=== PATIENT | female | born 1955 | race Caucasian/White ===

== ENCOUNTER 2023-01-09 23:23 | Inpatient (IN) | payer MEDICARE ==
[2023-01-09 23:54] LABS: #Monocytes 1.1 thou/uL (0.11-0.59); #Neutrophils 10.8 thou/uL (1.40-6.50); %Basophils 0.3 % (0.0-1.0); %Eosinophils 0.3 % (0.0-10.0); %Lymphocytes 7.4 % (21.0-51.0); %Monocytes 8.2 % (0.0-10.0); %Neutrophils 83.3 % (42.0-75.0); Mean Corpuscular HGB CONC 30.4 g/dL (32.0-36.0); Mean Corpuscular Hemoglobin 23.8 pg (27.0-31.0); Mean Corpuscular Volume 78.2 fl (78.0-98.0); Mean Platelet Volume 8.9 fL (7.4-10.4); Platelet Count 434 10x3/uL (130-400); RBC Distribution Width 16.1 % (11.5-14.5); Red Blood Cell (RBC) Count 2.94 mill/uL (4.20-5.40)
[2023-01-10 00:16] LABS: ALT (SGPT) 11 U/L (8-55); AST (SGOT) 15 U/L (5-34); Albumin 3.4 g/dL (3.4-4.8); Alkaline Phosphatase 155 U/L (40-110); Anion Gap 15 mmol/L (10-20); BUN (Urea Nitrogen) 32 mg/dL (9.8-20.1); Bilirubin, Total 0.3 mg/dL (0.2-1.2); Calc. Creatinine Clearance 0 mL/min (70-130); Calcium 8.8 mg/dL (7.8-10.44); Carbon Dioxide 14 mmol/L (23-31); Chloride 111 mmol/L (98-107); Estimated GFR 48; Globulin 2.8 g/dL (2.4-3.5); Glucose 123 mg/dL (80-115); Potassium 4.6 mmol/L (3.5-5.1); Protein, Total 6.2 g/dL (5.8-8.1); Sodium 135 mmol/L (136-145)
[2023-01-10] MEDS ORDERED: Furosemide 40 MG/4 ML VIAL ONE (01:15)
[2023-01-10] MEDS ORDERED: Vancomycin 1 GM/200 ML (FROZEN) BAG ONE (01:57)
[2023-01-10] MEDS ORDERED: Cefepime 2 GM VIAL ONE (01:57)
[2023-01-10] MEDS ORDERED: Senokot S 8.6-50 MG TAB PO PRN (02:17)
[2023-01-10] MEDS ORDERED: Acetaminophen 325 MG TAB PO PRN (02:17)
[2023-01-10] MEDS ORDERED: Ondansetron ODT 4 MG TAB PO PRN (02:17)
[2023-01-10] MEDS ORDERED: HYDROcodone/Acetaminophen 5/325 mg Tablet ONE (02:18)
[2023-01-10] MEDS ORDERED: Electrolyte Replacement Protocol 1 EACH FS SCH (02:22)
[2023-01-10 03:08] LABS: Lactic Acid 1.5 mmol/L (0.5-2.2)
[2023-01-10] MEDS ORDERED: Clindamycin/D5W 600 MG in Premix Bag 1 BAG IVPB SCH (03:15)
[2023-01-10 03:16] LABS: Troponin I Less than 0.010 ng/mL (< 0.028)
[2023-01-10 04:37] VITALS: BMI 37.0
[2023-01-10] MEDS ORDERED: EPOETIN ALFA-EPBX (ESRD) 10,000 UNITS/ML VIAL SC SCH ×3 (06:00→09:00)
[2023-01-10 06:45] LABS: Troponin I Less than 0.010 ng/mL (< 0.028)
[2023-01-10] MEDS: HYDROcodone/Acetaminophen 5/325 mg Tablet PO PRN ×2 (07:27→20:22)
[2023-01-10] MEDS: Ipratropium/Albuterol 3 ML NEB NEB SCH ×4 (07:41→23:34)
[2023-01-10] MEDS ORDERED: Azithromycin 250 MG TAB PO SCH (08:00)
[2023-01-10] MEDS ORDERED: LACTINEX 1 TAB PO SCH (09:00)
[2023-01-10] MEDS ORDERED: CHOLECALCIFEROL 1250 MCG PO SCH (09:00)
[2023-01-10] MEDS: cefTRIAXone\\ROCEPHIN 2 GM in Sodium Chloride 0.9% 100 ML IVPB SCH (09:27)
[2023-01-10] MEDS: Famotidine 20 MG TAB PO SCH (09:28)
[2023-01-10] MEDS: Carvedilol 25 MG TAB PO SCH ×2 (09:28→17:25)
[2023-01-10] MEDS: Polyethylene Glycol 3350 17 GM Packet PO SCH (09:28)
[2023-01-10] MEDS: Venlafaxine HCl XR 150 MG CAP PO SCH (09:28)
[2023-01-10] MEDS: Amlodipine 10 MG TAB PO SCH (09:28)
[2023-01-10] MEDS: Fenofibrate Nanocrystallized 145 MG TAB PO SCH (09:28)
[2023-01-10] MEDS ORDERED: Fluconazole 100 MG TAB PO SCH (09:45)
[2023-01-10] MEDS ORDERED: Iopamidol 370 76% 100 ML VIAL ONE (10:05)
[2023-01-10] MEDS: Nicotine 14 MG PATCH TD SCH (11:30)
[2023-01-10] MEDS: Floranex 1 GM Packet PO SCH (11:31)
[2023-01-10] MEDS ORDERED: tiZANidine HCl 4 MG TAB PO SCH (11:45)
[2023-01-10] MEDS ORDERED: Furosemide 40 MG TAB PO SCH (14:00)
[2023-01-11 04:38] LABS: #Eosinphils 0.2 thou/uL (0.0-0.7); #Monocytes 0.8 thou/uL (0.11-0.59); #Neutrophils 3.6 thou/uL (1.40-6.50); %Basophils 0.5 % (0.0-1.0); %Eosinophils 2.5 % (0.0-10.0); %Lymphocytes 23.3 % (21.0-51.0); %Monocytes 12.9 % (0.0-10.0); %Neutrophils 60.3 % (42.0-75.0); Hemoglobin 6.9 g/dL (12.0-16.0); Mean Corpuscular Hemoglobin 24.2 pg (27.0-31.0); Mean Corpuscular Volume 80.7 fl (78.0-98.0); Mean Platelet Volume 9.2 fL (7.4-10.4); Platelet Count 395 10x3/uL (130-400); RBC Distribution Width 16.5 % (11.5-14.5); Red Blood Cell (RBC) Count 2.85 mill/uL (4.20-5.40); White Blood Cell (WBC) Count 5.9 10x3/uL (4.8-10.8)
[2023-01-11 04:53] LABS: Anion Gap 13 mmol/L (10-20); BUN (Urea Nitrogen) 34 mg/dL (9.8-20.1); Calc. Creatinine Clearance 53 mL/min (70-130); Carbon Dioxide 19 mmol/L (23-31); Chloride 109 mmol/L (98-107); Estimated GFR 43; Glucose 83 mg/dL (80-115); Sodium 137 mmol/L (136-145)
[2023-01-11] MEDS: Ipratropium/Albuterol 3 ML NEB NEB SCH ×3 (08:32→18:39)
[2023-01-11] MEDS: Polyethylene Glycol 3350 17 GM Packet PO SCH (09:02)
[2023-01-11] MEDS: Nicotine 14 MG PATCH TD SCH (09:03)
[2023-01-11] MEDS: Floranex 1 GM Packet PO SCH (09:03)
[2023-01-11] MEDS: cefTRIAXone\\ROCEPHIN 2 GM in Sodium Chloride 0.9% 100 ML IVPB SCH (09:03)
[2023-01-11] MEDS: Fluconazole 100 MG TAB PO SCH (09:04)
[2023-01-11] MEDS: Venlafaxine HCl XR 150 MG CAP PO SCH (09:04)
[2023-01-11] MEDS: Carvedilol 25 MG TAB PO SCH ×2 (09:04→17:03)
[2023-01-11] MEDS: Famotidine 20 MG TAB PO SCH (09:04)
[2023-01-11] MEDS: tiZANidine HCl 4 MG TAB PO SCH (09:04)
[2023-01-11] MEDS: Azithromycin 250 MG TAB PO SCH (09:04)
[2023-01-11] MEDS: HYDROcodone/Acetaminophen 5/325 mg Tablet PO PRN ×3 (09:05→21:22)
[2023-01-11] MEDS: Amlodipine 10 MG TAB PO SCH (09:05)
[2023-01-11] MEDS: Fenofibrate Nanocrystallized 145 MG TAB PO SCH (09:05)
[2023-01-12] MEDS: Ipratropium/Albuterol 3 ML NEB NEB SCH ×3 (01:03→12:12)
[2023-01-12] MEDS: HYDROcodone/Acetaminophen 5/325 mg Tablet PO PRN ×2 (02:56→11:11)
[2023-01-12 04:34] LABS: #Basophils 0.1 thou/uL (0.0-0.2); #Eosinphils 0.3 thou/uL (0.0-0.7); #Monocytes 0.7 thou/uL (0.11-0.59); #Neutrophils 5.1 thou/uL (1.40-6.50); %Basophils 0.8 % (0.0-1.0); %Eosinophils 3.3 % (0.0-10.0); %Lymphocytes 18.6 % (21.0-51.0); %Monocytes 9.8 % (0.0-10.0); %Neutrophils 66.8 % (42.0-75.0); Hemoglobin 7.9 g/dL (12.0-16.0); Mean Corpuscular HGB CONC 30.4 g/dL (32.0-36.0); Mean Corpuscular Hemoglobin 24.8 pg (27.0-31.0); Mean Corpuscular Volume 81.8 fl (78.0-98.0); Mean Platelet Volume 9.1 fL (7.4-10.4); Platelet Count 415 10x3/uL (130-400); RBC Distribution Width 16.7 % (11.5-14.5); Red Blood Cell (RBC) Count 3.18 mill/uL (4.20-5.40); White Blood Cell (WBC) Count 7.6 10x3/uL (4.8-10.8)
[2023-01-12 05:03] LABS: Anion Gap 11 mmol/L (10-20); BUN (Urea Nitrogen) 27 mg/dL (9.8-20.1); Calc. Creatinine Clearance 63 mL/min (70-130); Calcium 9.1 mg/dL (7.8-10.44); Carbon Dioxide 22 mmol/L (23-31); Chloride 108 mmol/L (98-107); Estimated GFR 53; Glucose 80 mg/dL (80-115); Potassium 4.9 mmol/L (3.5-5.1); Sodium 136 mmol/L (136-145)
[2023-01-12] MEDS: Carvedilol 25 MG TAB PO SCH (10:26)
[2023-01-12] MEDS: Fluconazole 100 MG TAB PO SCH (10:26)
[2023-01-12] MEDS: Fenofibrate Nanocrystallized 145 MG TAB PO SCH (10:26)
[2023-01-12] MEDS: Amlodipine 10 MG TAB PO SCH (10:27)
[2023-01-12] MEDS: Polyethylene Glycol 3350 17 GM Packet PO SCH (10:27)
[2023-01-12] MEDS: tiZANidine HCl 4 MG TAB PO SCH (10:27)
[2023-01-12] MEDS: Famotidine 20 MG TAB PO SCH (10:27)
[2023-01-12] MEDS: Floranex 1 GM Packet PO SCH (10:27)
[2023-01-12] MEDS: Azithromycin 250 MG TAB PO SCH (10:27)
[2023-01-12] MEDS: Venlafaxine HCl XR 150 MG CAP PO SCH (10:27)
[2023-01-12] MEDS: cefTRIAXone\\ROCEPHIN 2 GM in Sodium Chloride 0.9% 100 ML IVPB SCH (10:28)
[2023-01-12] MEDS: Nicotine 14 MG PATCH TD SCH (11:12)
[2023-01-12 12:12] VITALS: TEMP 97.9
[2023-01-12 12:39] VITALS: BP 102/51
== END 2023-01-12 16:31 | disposition home or self-care (01) | DRG 193 ==
LOC: ERS 23:23 → 2NO 01-10 02:21
PROVIDERS: ADMIT Student in an Organized Health Care Education/Training Program; ATTEND Internal Medicine
PROC: 30233N1 Transfusion of Nonautologous Red Blood Cells into Peripheral Vein, Percutaneous Approach (ICD-10-PCS; principal; 2023-01-10)
DX: J18.9 Pneumonia, unspecified organism (principal); J96.00 Acute respiratory failure, unspecified whether with hypoxia or hypercapnia; J44.0 Chronic obstructive pulmonary disease with (acute) lower respiratory infection; I08.1 Rheumatic disorders of both mitral and tricuspid valves; D63.1 Anemia in chronic kidney disease; N18.9 Chronic kidney disease, unspecified; I12.9 Hypertensive chronic kidney disease with stage 1 through stage 4 chronic kidney disease, or unspecified chronic kidney disease; Z96.642 Presence of left artificial hip joint; E21.3 Hyperparathyroidism, unspecified; F17.210 Nicotine dependence, cigarettes, uncomplicated; Z79.82 Long term (current) use of aspirin; Z79.899 Other long term (current) drug therapy; Z79.890 Hormone replacement therapy; Z88.1 Allergy status to other antibiotic agents; Z90.49 Acquired absence of other specified parts of digestive tract; Z90.89 Acquired absence of other organs; Z90.710 Acquired absence of both cervix and uterus; Z98.84 Bariatric surgery status
CPT/HCPCS: 36415; 36430; 71045; 71275; 80048; 80053; 83605; 83880; 84484; 85025; 86850; 86900; 86901; 87040; 93005; 93010; 93306; 94640; 96374; 96375; J0692; J0696; J1650; J1940; J3370-JW; J3490; J7620; P9016; Q5105; Q9967; U0003; U0005